=== PATIENT | female | born 1975 | race Caucasian/White ===

== ENCOUNTER 2021-12-18 07:16 | Day surgery (SDC) | payer OTHER ==
[~2021-12-18] VITALS: Ht 180.3 cm; Wt 78.0 kg
--- NOTE | 2021-12-18 07:20 | NUR ---
PT AMBULATED TO ROOM WITH SPOUSE, BOTH HAVE BEEN ORIENTED TO POC. ALL QUESTIONS HAVE BEEN ADDRESSED. PT HAS BEEN PLACED ON FALL PRECAUTIONS. PT IS A&O, PT HAS NO C/O AT THIS TIME. PT IN NAD. PT HAS CALL LIGHT NEAR AND IS ABLE TO MAKE NEEDS KNOWN. WILL CONTINUE TO MONITOR.
[2021-12-18 07:43] LABS: HEMATOCRIT 40.5 % (37.0-47.0); HEMOGLOBIN 13.6 g/dl (12.0-16.0); MEAN CELL VOLUME 91.2 fL CALC (80.0-100.0); MEAN CORPUSCULAR HGB 30.6 pG CALC (26.0-32.0); MEAN CORPUSCULAR HGB CONC 33.6 g/dL CAL (32.0-36.0); NEUT# 2.05 thou/uL (2.00-7.15); RED BLOOD COUNT 4.44 mill/uL (4.20-5.60); RED CELL DISTRI WIDTH 12.3 % (11.5-15.5)
[2021-12-18 07:59] LABS: ALBUMIN 4.5 g/dL (3.2-5.0); ALKALINE PHOSPHATASE 97 u/l (38-126); ANION GAP 13 (6-22 (CALC)); BILIRUBIN, TOTAL 0.6 mg/dL (0.0-1.4); BUN 10 mg/dL (7-17); BUN/CREATININE RATIO 12 (12-20 (CALC)); CARBON DIOXIDE 26 mmol/l (22-30); CHLORIDE 104 mmol/l (95-108); CREATININE 0.8 mg/dL (0.5-1.0); GFR FOR AFR.AMER. > 60 ML/MIN (>=60 (CALC)); GFR OTHER RACES > 60 ML/MIN (>=60 (CALC)); POTASSIUM 4.4 mmol/l (3.5-5.1); SGOT/AST 26 u/l (14-36); SODIUM 139 mmol/l (137-146); TOTAL PROTEIN 6.8 g/dL (6.3-8.2)
--- NOTE | 2021-12-18 09:23 | NUR ---
PT REASSESSED PT EXPERIENCING WHAT SHE DESCRIBES WITHDRAWL, CALL WAS MADE TO AND ORDERS R'CD TO MEDICATE. WILL CONTINUE TO MONITOR.
[2021-12-18] MEDS ORDERED: NP THYROID60 MG PO (10:19)
[2021-12-18] MEDS ORDERED: LYRICA25 MG PO (10:20)
[2021-12-18] MEDS ORDERED: VALIUM2 MG VA (10:21)
[2021-12-18] MEDS ORDERED: ONDANSETRON4 MG PO (10:22)
[2021-12-18] MEDS ORDERED: TRIMETHOPRIM100 MG PO (10:23)
[2021-12-18] MEDS ORDERED: MOVANTIK25 MG (10:26)
[2021-12-18] MEDS ORDERED: TIZANIDINE2 MG PO (10:26)
[2021-12-18] MEDS ORDERED: ELMIRON100 MG PO (10:27)
[2021-12-18] MEDS ORDERED: PROTONIX40 M2 PO (10:28)
[2021-12-18] MEDS ORDERED: ATIVAN1 MG PO (10:29)
--- NOTE | 2021-12-18 10:38 | NUR ---
PT IS SLEEPING, VSS, NAD. WILL CONTINUE TO MONITOR.
--- NOTE | 2021-12-18 13:13 | NUR ---
Induction Note Patient to [facility] procedure room. Time out performed at 1313. Patient placed on monitors, Filiberto hugger, bilateral wrist restraints applied for ET tube protection. Versed 5mg given IV push at 1314 Tourniquet applied to RIGHT arm Lidocaine 100mg given at 1315 IV push followed by Rocoronium 10mg at 1316 IV push and held for 90 seconds. Propofol bolus of 130mg given at 1318 IV push. Succinylcholine 80mg given IV push at 1319. Smooth intubation with 7.5 ETT. Positive CO2. Positive Auscultation for air exchange. Patient placed on ventilator for spontaneous ventilation. Placed on Propofol IV drip at 1320. OG inserted. Positive air on auscultation. Positive gastric content. Stomach washed at this time.
--- NOTE | 2021-12-18 13:24 | NUR ---
OG close note Stomach washed at this time. Naltrexone 50 mg via OG tube. OG will be clamped for 45 minutes.
--- NOTE | 2021-12-18 14:09 | NUR ---
OG open note OG open at this time. Gastric content draining into drainage bag. OG to drain for 45 minutes. Propofol will be titrated down based on patient.
--- NOTE | 2021-12-18 14:54 | NUR ---
OG close note Stomach washed at this time. Naltrexone 50 mg via OG tube. OG will be clamped for 45 minutes.
--- NOTE | 2021-12-18 17:49 | NUR ---
Extubation note Closing medications given Benadryl 50mg IV push, Decadron 10mg IV push,Magnesium 4 grams IV, Zofran 8mg IV push, Octreotide 100mcg SC. Stomach washed out prior to extubation. Suctioned gastric content. OG removed. Patient extubated. Propofol Discontinued. Wrist restraints removed. Filiberto hugger Removed. See ANR Moderate sedate recovery record for further notes and assessment.
[2021-12-18] MEDS ORDERED: CLONIDINE0.1 MG PO (18:04)
[2021-12-18] MEDS ORDERED: NALTREXONE50 MG PO (18:04)
[2021-12-18] MEDS ORDERED: KLONOPIN0.5 MG PO (18:05)
[2021-12-18 18:12] VITALS: BP 94/53
--- NOTE | 2021-12-18 18:24 | NUR ---
REPORT GIVEN TO CHESTER DIAZ. PT IS ON 2LNC, LR @ 125ML/HR. PT HAS BED ALARM ACTIVE. VSS.
--- NOTE | 2021-12-18 18:39 | NUR ---
Receive Patient from [facility]R Procedure. Report from Opal BRIGGS. Patient under the effects of anesthesia. no observe distress at this time. 2L NC placed per orders O2 96% IVF to continue at 125ML/HR. Safety and fall precautions in place. Call light within in reach.
--- NOTE | 2021-12-18 19:45 | NUR ---
RECEIVED PRN VERSED PER ORDERS FOR INCREASED AGITATION. PATIENT TOLERATED WELL.
--- NOTE | 2021-12-18 20:30 | NUR ---
PATIENT RECEIVED PRN TORADOL PER ORDERS FOR GENERALIZED PAIN.
--- NOTE | 2021-12-18 20:35 | NUR ---
CONTACTED PROVIDER AND INFORMED OF PATIENTS CURRENT STATUS. NEW ORDERS RECEIVED. SEE EMAR.
[2021-12-18 22:37] VITALS: BP 97/64
--- NOTE | 2021-12-18 23:21 | NUR ---
PRN ZOFRAN GIVEN FOR NAUSEA. PATIENT TOLERATED WELL.
--- NOTE | 2021-12-18 23:48 | NUR ---
PATIENT RECEIVED PRN XANAX FOR MILD ANXIETY. PATIENT TOLERATED WELL. PATIENT ALSO RECEIVED PRN TYLENOL FOR GENERALIZED PAIN.
--- NOTE | 2021-12-19 00:13 | NUR ---
PATIENT WAS BLADDER SCANNED PER ORDER. GREATER THAN 800MLS. STRAIGHT CATHED PER ORDERS. 350CC OUT OF YELLOW URINE. PATIENT ALSO VOIDED IN BSC 200CC. PATIENT TOLERATED STRAIGHT CATH WELL.
--- NOTE | 2021-12-19 00:13 | NUR ---
PATIENT REMAINS PERIODICALLY CRYING. REDIRECTED MULTIPLE TIMES. PATIENT WAS GIVEN MULTIPLE BLANKETS, WET WASH CLOTH FOR HER LIPS, LIP MOISTURIZER, WATER, POSITION CHANGES, CLEANED UP MULTIPLE TIMES. BED REMAINS IN LOW POSITION. CALL MARSH IN REACH. BED ALARM ACTIVE FOR SAFETY.
--- NOTE | 2021-12-19 02:30 | NUR ---
PRN PHENERGAN GIVEN FOR MOD N/V. PATIENT REFUSED TO HAVE ZOFRAN.
--- NOTE | 2021-12-19 03:26 | NUR ---
PATIENT KEEPS YELLING OUT IN ROOM, NOT MAKING SENSE. REDIRECTED PATIENT MULTIPLE TIMES. PATIENT THOUGHT HER WAS HERE AND WAS ARGUING WITH STAFF. PATIENT WAS REDIRECTED AND INFORMED IS NOT HERE. PATIENT HAS OUTBURSTS WHERE SHE IS VERY RUDE TO STAFF. WE NICELY REEXPLAIN TO HER REST IS IMPORTANT AND THAT WE CANNOT GIVE HER MEDICATIONS THAT ARENT ON HER EMAR THAT SHE WANTS TO TAKE. PATIENT EVEN ASKS FOR SPECIFIC DOSING. SHE DOES APOLOGIZE FREQUENTLY, SLEEPS AND THEN REAWAKENS.
[2021-12-19 03:45] VITALS: BP 117/68
--- NOTE | 2021-12-19 03:53 | NUR ---
PATIENT RECEIVED SCHEDULED MEDS. PATIENT TOLERATED WELL. SHE REMAINS CRYING PERIODICALLY. REDIRECTED MULTIPLE TIMES. BED REMAINS IN LOW POSITION. BED ALARM ACTIVE FOR SAFETY. CALL MARSH IN REACH.
[2021-12-19 05:40] LABS: HEMATOCRIT 38.5 % (37.0-47.0); IMMATURE GRANULOCYTES 0.2 % (0.0-5.0); MEAN CELL VOLUME 89.7 fL CALC (80.0-100.0); MEAN CORPUSCULAR HGB 30.3 pG CALC (26.0-32.0); MEAN CORPUSCULAR HGB CONC 33.8 g/dL CAL (32.0-36.0); NEUT# 3.39 thou/uL (2.00-7.15); RED BLOOD COUNT 4.29 mill/uL (4.20-5.60); RED CELL DISTRI WIDTH 12.2 % (11.5-15.5)
[2021-12-19 06:04] LABS: ALBUMIN 4.2 g/dL (3.2-5.0); ALKALINE PHOSPHATASE 104 u/l (38-126); ANION GAP 19 (6-22 (CALC)); BILIRUBIN, TOTAL 0.7 mg/dL (0.0-1.4); BUN 10 mg/dL (7-17); BUN/CREATININE RATIO 14 (12-20 (CALC)); CHLORIDE 108 mmol/l (95-108); CREATININE 0.7 mg/dL (0.5-1.0); GFR FOR AFR.AMER. > 60 ML/MIN (>=60 (CALC)); GFR OTHER RACES > 60 ML/MIN (>=60 (CALC)); MAGNESIUM 2.4 mg/dL (1.6-2.3); POTASSIUM 4.6 mmol/l (3.5-5.1); SGOT/AST 22 u/l (14-36); SODIUM 142 mmol/l (137-146); TOTAL PROTEIN 6.4 g/dL (6.3-8.2)
[2021-12-19 06:05] LABS: CARBON DIOXIDE 20 mmol/l (22-30)
[2021-12-19 06:54] VITALS: BP 125/83
--- NOTE | 2021-12-19 07:00 | NUR ---
RECEIVE REPORT FROM KELLI BRIGGS.
--- NOTE | 2021-12-19 08:00 | NUR ---
PATIENT RESTING PLEASANT IN BED. ASSESSMENT HEAD-TO TOE COMPLETE. VITAL SIGN STABLE. PATIENT IS EDUCATED ABOUD MEDICATIONS AND NURSING PLAN FOR TODAY. PATIOENT REFER UNDERSTAND. SAFETY AND FALL PRECAUTIONS IN PLCA. SITTER AT BEDSIDE. CALL LIGHT WITHIN IN REACH.
[2021-12-19 08:35] VITALS: BP 125/83
--- NOTE | 2021-12-19 12:23 | NUR ---
PATIENT RESTTING IN BED STABLE AT THIS TIME.
--- NOTE | 2021-12-19 14:11 | NUR ---
Discharge instructions given. Patient verbalizes understanding of same. Discharged in stable condition via Wheelchair to Home with staff. All belongings sent with pt. IVS OUT. Educated aboud medications at home and follow up. Pt ans family refer understand.
== END 2021-12-19 14:15 | disposition home or self-care (01) | DRG 897 ==
LOC: ANR-I 07:16 → ANR 07:16 → MS2 17:37 → ANR 12-19 14:15
PROVIDERS: ATTEND Anesthesiology
DX: F11.20 Opioid dependence, uncomplicated (principal)
CPT/HCPCS: J2354